=== PATIENT | male | born 1985 | race Caucasian/White ===

== ENCOUNTER 2016-06-19 11:26 | Emergency (ER) | payer MEDICAID ==
[~2016-06-19] VITALS: Ht 182.9 cm; Wt 85.0 kg
[2016-06-19 11:30] VITALS: BP 167/74
[2016-06-19] MEDS ORDERED: KETOROLAC 30 MG/1 ML ONE (12:11)
[2016-06-19] MEDS ORDERED: OXYcodone/APAP 5/325MG TABLET ONE (12:11)
[2016-06-19] MEDS ORDERED: OXYcodone/APAP 5/325MG TABLET PO ONE (12:30)
[2016-06-19] MEDS ORDERED: KETOROLAC 30 MG/1 ML IM ONE (12:30)
== END 2016-06-19 13:24 | disposition home or self-care (01) ==
LOC: ED 13:18
DX: R07.89 Other chest pain (principal); J45.909 Unspecified asthma, uncomplicated; M79.602 Pain in left arm; F12.10 Cannabis abuse, uncomplicated
CPT/HCPCS: 71101; 96372; 99284; J1885